=== PATIENT | female | born 1935 | race Caucasian/White ===

== ENCOUNTER 2018-09-10 12:24 | Emergency (ER) | payer OTHER ==
[~2018-09-10] VITALS: Ht 160 cm; Wt 60.7 kg
[2018-09-10 12:32] VITALS: BP 169/93
[2018-09-10] MEDS ORDERED: DIPH,PERTUSS(ACELL),TET VAC/PF 0.5 ML IM-VACC ONE ×2 (13:30→13:44)
[2018-09-10] MEDS ORDERED: IBUPROFEN 200 MG TABLET PO ONE (13:30)
[2018-09-10] MEDS ORDERED: IBUPROFEN 600 MG TABLET ONE (13:43)
== END 2018-09-10 14:28 | disposition home or self-care (01) ==
LOC: ED 13:36
DX: S06.0X0A Concussion without loss of consciousness, initial encounter (principal); S02.2XXA Fracture of nasal bones, initial encounter for closed fracture; S16.1XXA Strain of muscle, fascia and tendon at neck level, initial encounter; W18.30XA Fall on same level, unspecified, initial encounter; Y93.01 Activity, walking, marching and hiking; Y92.512 Supermarket, store or market as the place of occurrence of the external cause; Y99.8 Other external cause status
CPT/HCPCS: 70450; 70486; 72125; 90471; 90715